=== PATIENT | male | born 2000 ===

== ENCOUNTER 2024-09-08 17:48 | Emergency (ER) | payer SELFPAY ==
[~2024-09-08] VITALS: Ht 170.2 cm; Wt 61.0 kg
[2024-09-08 18:09] VITALS: BP 111/76; TEMP 100.7; O2SAT 98
== END 2024-09-08 19:34 | disposition left against medical advice (07) ==
LOC: M ED 17:48
DX: Z53.21 Procedure and treatment not carried out due to patient leaving prior to being seen by health care provider (principal)